=== PATIENT | female | born 1995 | race Caucasian/White ===

== ENCOUNTER 2022-05-21 23:34 | Inpatient (IN) | payer BC ==
[2022-05-22] MEDS ORDERED: Water For Irrigation,Sterile 1,000 ML Container IRR PRN (00:40)
[2022-05-22] MEDS ORDERED: Carboprost Tromethamine 250 MCG/1 ML Amp IM PRN (00:40)
[2022-05-22] MEDS ORDERED: Sodium Chloride 0.9% 20 ML SDV IV PRN (00:40)
[2022-05-22] MEDS ORDERED: Sodium Chloride 0.9% 10 ML Syringe FLUSH PRN (00:40)
[2022-05-22] MEDS ORDERED: Sodium Chloride 0.9% 2.5 ML Syringe FLUSH PRN (00:40)
[2022-05-22] MEDS ORDERED: Methylergonovine 0.2 MG/1 ML Amp IM PRN (00:40)
[2022-05-22] MEDS ORDERED: Tranexamic Acid 1,000 MG in Sodium Chloride 0.9% 100 ML IV PRN (00:40)
[2022-05-22] MEDS ORDERED: Misoprostol 200 MCG Tab PO PRN (00:40)
[2022-05-22] MEDS ORDERED: Lidocaine 1% 50 ML MDV INJECT PRN (00:40)
[2022-05-22] MEDS ORDERED: Terbutaline 1 MG/ML SDV SUBCUT PRN (00:43)
[2022-05-22] MEDS ORDERED: Oxytocin/0.9 % Sodium Chloride 30 UNIT/500 ML BAG IV SCH ×2 (00:45)
[2022-05-22] MEDS ORDERED: Misoprostol 25 MCG (1/4 of 100 MCG) Tab VAG PRN ×2 (01:00→07:00)
[2022-05-22] MEDS: Lactated Ringers 1,000 ML IV SCH ×4 (01:26→15:46)
[2022-05-22] MEDS: Butorphanol 1 MG/ML SDV IVPUSH PRN ×2 (01:36→04:01)
[2022-05-22 04:08] LABS: CARBON DIOXIDE,CO2 21.7 mmol/L (21.0-32.0); POTASSIUM,K 3.8 mmol/L (3.5-5.1)
[2022-05-22] MEDS ORDERED: Bupivacaine 0.5% 10 ML SDV ONE (07:33)
[2022-05-22] MEDS ORDERED: Ropivacaine/PF 400 MG/200 ML PCA ONE (07:33)
[2022-05-22] MEDS ORDERED: Phenylephrine HCl In 0.9% NaCl 1 MG/10 ML Vial IVPUSH PRN (12:25)
[2022-05-22] MEDS ORDERED: ePHEDrine 50 MG/ML SDV IVPUSH PRN ×2 (12:25)
[2022-05-22] MEDS ORDERED: Ropivacaine HCl/PF 400 MG in Premix Bag 1 BAG EPIDUR SCH (12:30)
[2022-05-22] MEDS ORDERED: Ondansetron 4 MG/2 ML SDV ONE (13:28)
[2022-05-22] MEDS: Ondansetron 4 MG/2 ML SDV IVPUSH PRN (13:35)
[2022-05-22] MEDS: Ampicillin 2 GM in Sodium Chloride 0.9% 100 ML IV SCH (22:17)
[2022-05-22] MEDS: Acetaminophen 500 MG Tab PO PRN (22:18)
[2022-05-23] MEDS: Lactated Ringers 1,000 ML IV SCH ×2 (01:09→23:33)
[2022-05-23] MEDS: Ondansetron 4 MG/2 ML SDV IVPUSH PRN (02:46)
[2022-05-23] MEDS: Ampicillin 2 GM in Sodium Chloride 0.9% 100 ML IV SCH ×4 (04:08→23:27)
[2022-05-23] MEDS: Acetaminophen 500 MG Tab PO PRN (04:11)
[2022-05-23] MEDS ORDERED: Sodium Chloride 0.9% 10 ML Syringe FLUSH PRN (04:24)
[2022-05-23] MEDS ORDERED: Sodium Chloride 0.9% 20 ML SDV IV PRN (04:24)
[2022-05-23] MEDS ORDERED: Misoprostol 200 MCG Tab RECTAL PRN ×2 (04:24→06:40)
[2022-05-23] MEDS ORDERED: Citric Acid/Sodium Citrate Solution 30 ML Cup PO ONE (04:24)
[2022-05-23] MEDS ORDERED: Sodium Chloride 0.9% 2.5 ML Syringe FLUSH PRN (04:24)
[2022-05-23] MEDS ORDERED: Lactated Ringers 1,000 ML IV SCH (04:30)
[2022-05-23] MEDS ORDERED: Ropivacaine 0.5% 5 MG/ML 30 ML SDV ONE (04:39)
[2022-05-23] MEDS ORDERED: Ketorolac 30 MG/ML SDV ONE (04:39)
[2022-05-23] MEDS ORDERED: Dexamethasone 4 MG/ML 5 ML MDV ONE (04:39)
[2022-05-23] MEDS ORDERED: fentaNYL 100 MCG/2 ML SDV ONE ×2 (04:39→06:49)
[2022-05-23] MEDS ORDERED: ceFAZolin 1 GM Vial ONE (04:39)
[2022-05-23] MEDS ORDERED: Oxytocin 10 Units/1 ML SDV ONE (04:39)
[2022-05-23] MEDS ORDERED: Ondansetron 4 MG/2 ML SDV ONE (04:39)
[2022-05-23] MEDS ORDERED: Morphine PF 10 MG/10 ML SDV ONE (04:40)
[2022-05-23] MEDS: Clindamycin Phosphate in D5W 900 MG in Premix Bag 1 BAG IV SCH ×6 (04:40→22:35)
[2022-05-23] MEDS ORDERED: Midazolam 1 MG/ML 2 ML SDV ONE (05:20)
[2022-05-23] MEDS ORDERED: Tranexamic Acid 1,000 MG/10 ML Vial ONE (05:28)
[2022-05-23] MEDS ORDERED: Phenylephrine 1% 10 MG/ML SDV ONE (05:29)
[2022-05-23] MEDS ORDERED: Propofol 200 MG/20 ML SDV ONE (05:52)
[2022-05-23] MEDS ORDERED: Bisacodyl 10 MG Supp RECTAL PRN (06:40)
[2022-05-23] MEDS ORDERED: Tranexamic Acid 1,000 MG in Sodium Chloride 0.9% 100 ML IV PRN (06:40)
[2022-05-23] MEDS ORDERED: diphenhydrAMINE 50 MG/ML SDV IVPUSH PRN (06:40)
[2022-05-23] MEDS ORDERED: Lanolin 100% Cream 7 GM Tube TOP PRN (06:40)
[2022-05-23] MEDS ORDERED: Ketorolac 30 MG/ML SDV IVPUSH SCH (06:45)
[2022-05-23] MEDS ORDERED: Carboprost Tromethamine 250 MCG/1 mL Vial ONE (07:46)
[2022-05-23 08:27] LABS: CARBON DIOXIDE,CO2 20.1 mmol/L (21.0-32.0)
[2022-05-23] MEDS: Docusate Sodium 100 MG Cap PO SCH ×2 (09:00→21:37)
[2022-05-23] MEDS ORDERED: Promethazine 25 MG/ML SDV IM PRN (12:54)
[2022-05-23] MEDS: Ketorolac 30 MG/ML SDV IVPUSH SCH ×3 (13:40→20:28)
[2022-05-23] MEDS: Simethicone 80 MG Tab.Chew PO PRN ×2 (17:23→23:32)
[2022-05-23] MEDS ORDERED: Lactated Ringers 1,000 ML IV ONE (18:54)
[2022-05-23] MEDS: Phenylephrine HCl In 0.9% NaCl 1 MG/10 ML Vial IVPUSH SCH (19:41)
[2022-05-23] MEDS: Acetaminophen/oxyCODONE 325-5 MG Tab PO PRN (22:42)
[2022-05-24] MEDS: Ketorolac 30 MG/ML SDV IVPUSH SCH (02:54)
[2022-05-24] MEDS: Simethicone 80 MG Tab.Chew PO PRN ×3 (05:39→19:13)
[2022-05-24] MEDS: Ampicillin 2 GM in Sodium Chloride 0.9% 100 ML IV SCH (05:39)
[2022-05-24] MEDS: Acetaminophen/oxyCODONE 325-5 MG Tab PO PRN ×5 (05:44→22:01)
[2022-05-24] MEDS: Clindamycin Phosphate in D5W 900 MG in Premix Bag 1 BAG IV SCH ×2 (06:18)
[2022-05-24 06:55] LABS: CARBON DIOXIDE,CO2 23.3 mmol/L (21.0-32.0); POTASSIUM,K 4.5 mmol/L (3.5-5.1)
[2022-05-24] MEDS: Docusate Sodium 100 MG Cap PO SCH ×2 (09:23→21:54)
[2022-05-24] MEDS: Lactated Ringers 1,000 ML IV SCH (09:24)
[2022-05-24] MEDS ORDERED: Ketorolac 30 MG/ML SDV IVPUSH ONE (09:30)
[2022-05-24] MEDS: Ibuprofen 800 MG Tab PO PRN (19:13)
[2022-05-25] MEDS: Acetaminophen/oxyCODONE 325-5 MG Tab PO PRN ×3 (02:53→09:26)
[2022-05-25] MEDS: Ibuprofen 800 MG Tab PO PRN (04:13)
[2022-05-25 05:35] LABS: CARBON DIOXIDE,CO2 26.2 mmol/L (21.0-32.0); POTASSIUM,K 4.4 mmol/L (3.5-5.1)
[2022-05-25] MEDS: Simethicone 80 MG Tab.Chew PO PRN (06:26)
[2022-05-25] MEDS: Docusate Sodium 100 MG Cap PO SCH (09:26)
== END 2022-05-25 10:30 | disposition home or self-care (01) | DRG 540 ==
LOC: MW.OBCHECK 23:34 → MW.OB 23:35 → MW.OBCHECK 05-22 00:40 → OBSVTOIN 05-23 06:40 → MW.OB 05-23 18:29
PROVIDERS: ADMIT Obstetrics & Gynecology; ATTEND Obstetrics & Gynecology
PROC: 10D00Z1 Extraction of Products of Conception, Low, Open Approach (ICD-10-PCS; principal; 2022-05-23)
PROC: 3E0P7VZ Introduction of Hormone into Female Reproductive, Via Natural or Artificial Opening (ICD-10-PCS; 2022-05-23)
DX: O42.02 Full-term premature rupture of membranes, onset of labor within 24 hours of rupture (principal); O62.1 Secondary uterine inertia; O41.1230 Chorioamnionitis, third trimester, not applicable or unspecified; O72.1 Other immediate postpartum hemorrhage; O77.0 Labor and delivery complicated by meconium in amniotic fluid; O69.9XX0 Labor and delivery complicated by cord complication, unspecified, not applicable or unspecified; O48.0 Post-term pregnancy; O99.893 Other specified diseases and conditions complicating puerperium; N17.9 Acute kidney failure, unspecified; Z3A.40 40 weeks gestation of pregnancy; Z86.16 Personal history of COVID-19; Z37.0 Single live birth
CPT/HCPCS: 01968; 36415; 36430; 51702; 64488; 80048; 80053; 80170; 82570; 82803; 84112; 84156; 84550; 85027; 85384; 85610; 85730; 86592; 86850; 86900; 86901; 86920; A9270-GY; J0290; J0595; J0690; J1100; J1580; J1885; J2001; J2210; J2250; J2274; J2370; J2405; J2550; J2590; J2704; J2795; J3010; J3490; J7050; J7120; P9016